=== PATIENT | male | born 1985 | race African-American/Black ===

== ENCOUNTER 2017-07-02 14:47 | Observation (INO) | payer MEDICAID ==
[~2017-07-02] VITALS: Ht 185.4 cm; Wt 105.0 kg
[2017-07-02] MEDS ORDERED: ZIPRASIDONE 20 MG INJ IM PRN ×2 (15:30→21:30)
[2017-07-02 15:41] LABS: BASOPHILS # (AUTO) 0.03 x10^3/uL (0-0.1); BASOPHILS % (AUTO) 1 % (0-1); EOSINOPHILS # (AUTO) 0.07 x10^3/uL (0-0.4); EOSINOPHILS % (AUTO) 1 % (1-7); LYMPHOCYTES # (AUTO) 1.52 x10^3/uL (1-3.4); LYMPHOCYTES % (AUTO) 21 % (22-44); MD NO; MEAN CORPUSCULAR HEMOGLOBIN 31.8 pg (27.5-34.5); MEAN CORPUSCULAR HGB CONC 33.7 g/dL (33.2-36.2); MEAN CORPUSCULAR VOLUME 94.3 fL (81-97); MEAN PLATELET VOLUME 8.9 fL (7.4-10.4); MONOCYTES # (AUTO) 0.44 x10^3/uL (0.2-0.8); MONOCYTES % (AUTO) 6 % (2-9); NEUTROPHILS # (AUTO) 5.09 x10^3/uL (1.8-6.8); NEUTROPHILS % (AUTO) 71 % (42-75); PLATELET COUNT 256 x10^3/uL (130-400); RED BLOOD COUNT 4.47 x10^6/uL (4.38-5.82); RED CELL DISTRIBUTION WIDTH 13.4 % (9.4-14.8)
[2017-07-02 15:46] LABS: ALBUMIN 3.9 g/dL (3.4-5.0); ANION GAP 6 mmol/L (5-15); CALCIUM 8.3 mg/dL (8.5-10.1); CHLORIDE 108 mmol/L (98-107)
[2017-07-02 15:54] LABS: ALANINE AMINOTRANSFERASE 17 U/L (12-78); ALKALINE PHOSPHATASE 76 U/L (45-117); BILIRUBIN,TOTAL 0.5 mg/dL (0.2-1.0); CREATININE 0.83 mg/dL (0.7-1.3); TOTAL PROTEIN 6.8 g/dL (6.4-8.2)
[2017-07-02 15:55] LABS: AMPHETAMINE SCREEN, URINE Negative (Negative); BARBITURATE SCREEN, URINE Negative (Negative); BENZODIAZEPINE SCREEN, URINE Negative (Negative); CANNABINOID SCREEN, URINE Negative (Negative); COCAINE SCREEN, URINE Negative (Negative); METHADONE SCREEN, URINE Negative (Negative); OPIATE SCREEN, URINE Negative (Negative)
[2017-07-02 15:55] LABS: SALICYLATE LEVEL < 1.7 mg/dL (2.8-20.0)
[2017-07-02 15:56] LABS: ACETAMINOPHEN < 2 mcg/mL (10-30)
[2017-07-02] MEDS ORDERED: ZIPRASIDONE 20 MG INJ IM ONE (16:02)
[2017-07-02] MEDS ORDERED: LORazepam 1MG TABLET ONE ×2 (16:02→19:09)
[2017-07-02] MEDS: LORazepam 1MG TABLET PO PRN (16:07)
[2017-07-02] MEDS ORDERED: NICOTINE 21 MG/24 HR PATCH.TD24 ONE (19:09)
[2017-07-02] MEDS ORDERED: LORazepam 1MG TABLET PO ONE (19:30)
[2017-07-02] MEDS ORDERED: NICOTINE 21 MG/24 HR PATCH.TD24 TD ONE (19:30)
[2017-07-02] MEDS ORDERED: DOCUSATE 100 MG CAPSULE PO PRN (21:30)
[2017-07-02] MEDS ORDERED: ZIPRASIDONE 20MG CAPSULE PO PRN (21:30)
[2017-07-02] MEDS ORDERED: ACETAMINOPHEN 325 MG TABLET PO PRN (21:30)
[2017-07-02] MEDS ORDERED: NICOTINE 14MG/24 HR PATCH.TD24 TD ONE (21:30)
[2017-07-02] MEDS ORDERED: LORazepam 2 MG/ML, 1ML IM PRN (21:30)
[2017-07-02] MEDS ORDERED: ONDANSETRON ODT 4 MG PO PRN (21:30)
[2017-07-02] MEDS ORDERED: LORazepam 1MG TABLET PO PRN (21:30)
[2017-07-03] MEDS ORDERED: ZIPRASIDONE 20MG CAPSULE ONE ×4 (04:26→10:10)
[2017-07-03] MEDS ORDERED: LORazepam 1MG TABLET ONE ×4 (04:37→22:43)
[2017-07-03] MEDS: LORazepam 1MG TABLET PO PRN ×2 (04:40→22:51)
[2017-07-03] MEDS: ZIPRASIDONE 20MG CAPSULE PO PRN ×2 (06:01→08:05)
[2017-07-03] MEDS ORDERED: LORazepam 2 MG/ML, 1ML IM PRN (19:00)
[2017-07-03] MEDS ORDERED: ZIPRASIDONE 20MG CAPSULE PO PRN (19:00)
[2017-07-03] MEDS ORDERED: NICOTINE 21 MG/24 HR PATCH.TD24 ONE (20:28)
[2017-07-03] MEDS: NICOTINE 21 MG/24 HR PATCH.TD24 TD SCH (20:35)
[2017-07-04] MEDS ORDERED: LORazepam 1MG TABLET ONE ×2 (05:41→21:07)
[2017-07-04] MEDS ORDERED: ZIPRASIDONE 20MG CAPSULE ONE ×4 (05:41→19:03)
[2017-07-04] MEDS: ZIPRASIDONE 20MG CAPSULE PO PRN ×3 (05:45→19:04)
[2017-07-04] MEDS: LORazepam 1MG TABLET PO PRN ×2 (05:45→21:10)
[2017-07-04] MEDS ORDERED: NICOTINE 21 MG/24 HR PATCH.TD24 TD SCH ×2 (09:00→19:30)
[2017-07-04] MEDS ORDERED: NICOTINE 21 MG/24 HR PATCH.TD24 ONE (21:06)
[2017-07-04] MEDS: NICOTINE 21 MG/24 HR PATCH.TD24 TD SCH (21:09)
[2017-07-05] MEDS ORDERED: ZIPRASIDONE 20MG CAPSULE ONE ×4 (05:28→17:58)
[2017-07-05] MEDS: ZIPRASIDONE 20MG CAPSULE PO PRN ×4 (05:30→18:27)
[2017-07-05] MEDS ORDERED: LORazepam 1MG TABLET ONE ×3 (05:40→17:58)
[2017-07-05] MEDS: LORazepam 1MG TABLET PO PRN ×3 (05:41→18:27)
[2017-07-05] MEDS ORDERED: NICOTINE 21 MG/24 HR PATCH.TD24 ONE (22:35)
[2017-07-05] MEDS: NICOTINE 21 MG/24 HR PATCH.TD24 TD SCH (22:36)
[2017-07-06] MEDS ORDERED: LORazepam 1MG TABLET ONE ×3 (02:10→21:37)
[2017-07-06] MEDS: LORazepam 1MG TABLET PO PRN ×3 (02:11→21:42)
[2017-07-06] MEDS ORDERED: ZIPRASIDONE 20MG CAPSULE ONE ×4 (07:26→21:37)
[2017-07-06] MEDS: ZIPRASIDONE 20MG CAPSULE PO PRN ×4 (07:28→21:43)
[2017-07-06] MEDS ORDERED: NICOTINE 21 MG/24 HR PATCH.TD24 ONE (21:37)
[2017-07-06] MEDS: NICOTINE 21 MG/24 HR PATCH.TD24 TD SCH (21:44)
[2017-07-07] MEDS ORDERED: ZIPRASIDONE 20 MG INJ IM ONE (08:41)
[2017-07-07] MEDS ORDERED: LORazepam 1MG TABLET ONE ×2 (08:45→15:32)
[2017-07-07] MEDS: LORazepam 1MG TABLET PO PRN ×2 (09:37→15:37)
[2017-07-07] MEDS: ZIPRASIDONE 20MG CAPSULE PO PRN ×3 (09:38→21:00)
[2017-07-07] MEDS ORDERED: NICOTINE 21 MG/24 HR PATCH.TD24 ONE (14:23)
[2017-07-07] MEDS: NICOTINE 21 MG/24 HR PATCH.TD24 TD SCH (14:24)
[2017-07-07] MEDS ORDERED: ZIPRASIDONE 20MG CAPSULE ONE ×2 (15:32→20:56)
[2017-07-08] MEDS ORDERED: LORazepam 1MG TABLET ONE ×3 (06:43→21:31)
[2017-07-08] MEDS: LORazepam 1MG TABLET PO PRN ×3 (06:46→21:34)
[2017-07-08] MEDS ORDERED: ZIPRASIDONE 20MG CAPSULE ONE ×3 (07:35→23:16)
[2017-07-08] MEDS: ZIPRASIDONE 20MG CAPSULE PO PRN ×3 (07:52→23:19)
[2017-07-08] MEDS ORDERED: NICOTINE 21 MG/24 HR PATCH.TD24 ONE (20:56)
[2017-07-08] MEDS: NICOTINE 21 MG/24 HR PATCH.TD24 TD SCH (21:00)
[2017-07-09] MEDS ORDERED: ZIPRASIDONE 20MG CAPSULE ONE ×4 (08:31→20:31)
[2017-07-09] MEDS: ZIPRASIDONE 20MG CAPSULE PO PRN ×4 (08:32→20:30)
[2017-07-09] MEDS: LORazepam 1MG TABLET PO PRN (20:30)
[2017-07-09] MEDS ORDERED: LORazepam 1MG TABLET ONE (20:31)
[2017-07-09] MEDS ORDERED: NICOTINE 21 MG/24 HR PATCH.TD24 ONE (20:58)
[2017-07-09] MEDS: NICOTINE 21 MG/24 HR PATCH.TD24 TD SCH (21:00)
[2017-07-10] MEDS ORDERED: ZIPRASIDONE 20MG CAPSULE ONE ×3 (00:18→15:11)
[2017-07-10] MEDS: ZIPRASIDONE 20MG CAPSULE PO PRN ×3 (00:24→15:17)
[2017-07-10] MEDS ORDERED: LORazepam 1MG TABLET ONE ×2 (08:11→15:12)
[2017-07-10] MEDS: LORazepam 1MG TABLET PO PRN ×3 (08:20→22:05)
[2017-07-10] MEDS: NICOTINE 21 MG/24 HR PATCH.TD24 TD SCH (21:00)
[2017-07-10] MEDS ORDERED: OLANZAPINE 10 MG TABLET PO SCH (21:00)
[2017-07-10] MEDS ORDERED: OLANZAPINE 10 MG TABLET ONE (21:42)
[2017-07-10 21:48] VITALS: BP 126/67
[2017-07-11 08:19] VITALS: BP 120/76
[2017-07-11] MEDS: LORazepam 1MG TABLET PO PRN (08:25)
[2017-07-11] MEDS: DIVALPROEX 500 MG TAB.ER.24H PO SCH (08:25)
[2017-07-11] MEDS ORDERED: OLANZAPINE 10 MG TABLET PO ONE (13:00)
[2017-07-11 19:29] VITALS: BP 114/66
[2017-07-11] MEDS: NICOTINE 21 MG/24 HR PATCH.TD24 TD SCH (21:00)
[2017-07-11] MEDS: OLANZAPINE 10 MG TABLET PO SCH (21:53)
[2017-07-12 08:00] VITALS: BP 137/81
[2017-07-12] MEDS: DIVALPROEX 500 MG TAB.ER.24H PO SCH (08:44)
[2017-07-12] MEDS: OLANZAPINE 10 MG TABLET PO SCH ×2 (08:50→21:34)
[2017-07-12] MEDS: LORazepam 1MG TABLET PO PRN ×2 (10:02→10:24)
[2017-07-12] MEDS: NICOTINE 21 MG/24 HR PATCH.TD24 TD SCH (21:00)
[2017-07-12 21:41] VITALS: BP 126/70
[2017-07-13 07:37] VITALS: BP 111/62
[2017-07-13] MEDS: DIVALPROEX 500 MG TAB.ER.24H PO SCH (08:29)
[2017-07-13] MEDS: OLANZAPINE 10 MG TABLET PO SCH (08:29)
[2017-07-13] MEDS: LORazepam 1MG TABLET PO PRN (15:55)
[2017-07-13] MEDS: NICOTINE 21 MG/24 HR PATCH.TD24 TD SCH (21:38)
[2017-07-14] MEDS: OLANZAPINE 10 MG TABLET PO SCH ×3 (00:44→22:42)
[2017-07-14 00:47] VITALS: BP 110/66
[2017-07-14 07:38] VITALS: BP 130/72
[2017-07-14] MEDS: DIVALPROEX 500 MG TAB.ER.24H PO SCH (09:15)
[2017-07-14] MEDS: LORazepam 1MG TABLET PO PRN (10:50)
[2017-07-14] MEDS: NICOTINE 21 MG/24 HR PATCH.TD24 TD SCH (22:43)
[2017-07-14 22:47] VITALS: BP 152/98
[2017-07-15] MEDS: LORazepam 1MG TABLET PO PRN (09:11)
[2017-07-15] MEDS: DIVALPROEX 500 MG TAB.ER.24H PO SCH ×2 (09:12→21:25)
[2017-07-15] MEDS: OLANZAPINE 10 MG TABLET PO SCH ×2 (09:12→21:24)
[2017-07-15 10:46] LABS: ALANINE AMINOTRANSFERASE 21 U/L (12-78); ALBUMIN 3.8 g/dL (3.4-5.0); ANION GAP 7 mmol/L (5-15); CALCIUM 8.7 mg/dL (8.5-10.1); CHLORIDE 106 mmol/L (98-107); CREATININE 0.76 mg/dL (0.7-1.3)
[2017-07-15 10:49] LABS: ALKALINE PHOSPHATASE 72 U/L (45-117); BILIRUBIN,TOTAL 0.4 mg/dL (0.2-1.0); TOTAL PROTEIN 7.3 g/dL (6.4-8.2)
[2017-07-15 21:23] VITALS: BP 126/76
[2017-07-15] MEDS: NICOTINE 21 MG/24 HR PATCH.TD24 TD SCH (21:25)
[2017-07-16 07:25] VITALS: BP 153/53
[2017-07-16] MEDS: OLANZAPINE 10 MG TABLET PO SCH ×2 (08:26→20:41)
[2017-07-16] MEDS: LORazepam 1MG TABLET PO PRN (08:26)
[2017-07-16] MEDS: DIVALPROEX 500 MG TAB.ER.24H PO SCH ×2 (08:26→20:39)
[2017-07-16] MEDS ORDERED: DIVA500T4 PO (14:13)
[2017-07-16] MEDS ORDERED: OLAN10TA9 PO (14:13)
[2017-07-16 20:48] VITALS: BP 107/66
[2017-07-16] MEDS: NICOTINE 21 MG/24 HR PATCH.TD24 TD SCH (20:59)
[2017-07-17 07:38] VITALS: BP 124/71
[2017-07-17] MEDS: LORazepam 1MG TABLET PO PRN (08:04)
[2017-07-17] MEDS: DIVALPROEX 500 MG TAB.ER.24H PO SCH (08:04)
[2017-07-17] MEDS: OLANZAPINE 10 MG TABLET PO SCH (08:04)
== END 2017-07-17 14:38 ==
LOC: ED 19:14 → EDIP 21:07 → INTOOBSV 21:07 → 3E 07-10 21:46
PROVIDERS: ADMIT Internal Medicine; ATTEND Family Medicine
DX: F23 Brief psychotic disorder (principal); F20.9 Schizophrenia, unspecified; Z72.0 Tobacco use
CPT/HCPCS: 36415; 80053; 80164; 80307; 80329; 85025; 93005; 96372; 99285; G0378; J3486; G0480